=== PATIENT | female | born 1990 | race Caucasian/White ===

== ENCOUNTER 2017-07-04 04:50 | Emergency (ER) | payer MEDICAID ==
[2017-07-04] MEDS ORDERED: Dexamethasone 4 mg/ml Vial ONE (06:16)
== END 2017-07-04 06:23 | disposition home or self-care (01) ==
LOC: ERS 04:50
DX: L25.9 Unspecified contact dermatitis, unspecified cause (principal); F17.210 Nicotine dependence, cigarettes, uncomplicated
CPT/HCPCS: 99282; J1100

== ENCOUNTER → 2018-05-28 | Day surgery (SDC) | payer MEDICAID, OTHER, SELFPAY ==
[2018-05-28 22:39] LABS: #Eosinphils 0.4 thou/uL (0.0-0.7); #Monocytes 0.6 thou/uL (0.11-0.59); #Neutrophils 6.4 thou/uL (1.40-6.50); %Basophils 0.4 % (0.0-1.0); %Eosinophils 3.6 % (0.0-10.0); %Lymphocytes 28.8 % (21.0-51.0); %Neutrophils 61.2 % (42.0-75.0); Hemoglobin 11.5 g/dL (12.0-16.0); Mean Corpuscular HGB CONC 33.9 g/dL (32.0-36.0); Mean Corpuscular Hemoglobin 30.8 pg (27.0-31.0); Mean Platelet Volume 8.6 fL (7.4-10.4); Platelet Count 181 thou/uL (130-400); RBC Distribution Width 10.7 % (11.5-14.5); Red Blood Cell (RBC) Count 3.72 mill/uL (4.20-5.40); White Blood Cell (WBC) Count 10.4 thou/uL (4.8-10.8)
[2018-05-28 22:56] LABS: Amnisure Test No Membranes Rupture (No Rupture)
--- NOTE | 2018-05-28 22:56 | PDOC.EVN ---
Event Note - Event Note Event Note: H&P Dictated at 2230 In Brief: 16 weeks 6 days with concern for leakage FHTs by doppler 140s-150s SSE performed with no evidence LOF; possible BV Collected: VP3 GC and CHL Amnisure Details given to patient
[2018-05-28 22:57] LABS: Amnisure Internal Control QC ACCEPTABLE (ACCEPTABLE)
[2018-05-28 23:02] VITALS: BMI 29.7
--- NOTE | 2018-05-28 23:18 | HP ---
TIME OF EVALUATION: 10:30 pm. LOCATION: Triage bed B. CHIEF COMPLAINT: Possible leakage of fluid at 16 weeks and 6 days. The patient of Dr. Holcomb. HISTORY OF PRESENT ILLNESS: In brief, this is a 28-year-old , 6, para 4, ectopic 1, who is currently at 16 weeks and 6 days with a history of prior at around 30 to 33 weeks, who presents with possible vaginal discharge concerning for leakage. She denies a big gush of fluid or acute vaginal bleeding. She denies recent trauma. She denies any fevers or other passage of vaginal clots. PAST OBSTETRICAL HISTORY: Significant for first delivery being at term. Her second delivery being at 33 weeks and her most recent delivery being at 30 weeks. She also has a history of ectopic , for which she underwent left salpingectomy. PAST MEDICAL HISTORY: Otherwise negative. PAST SURGICAL HISTORY: Significant for the left salpingectomy and a LEEP. ALLERGIES: NONE. SOCIAL HISTORY: Negative for alcohol, tobacco, or drug use. REVIEW OF SYSTEMS: Complete review of systems was checked and is otherwise negative unless specified in the HPI. PHYSICAL EXAMINATION: She is afebrile and normotensive. Clinically, she is in no acute distress. Abdomen is soft and nontender. I performed a sterile speculum examination due to the possible complaint of leakage and sterile spec exam revealed no evidence of pooling, and no leakage of fluid with Valsalva or cough. The cervix was visibly closed. There was a slight amount of white discharge in the vagina, which could be concerning for bacterial vaginosis. I have collected AmniSure, VPIII, and a GC and a Chlamydia, although that last test will likely not be back today. On doppler assessment, heart tones were in the 140s to 150s on hand-held Doppler evaluation. ASSESSMENT: This is a multigravida, who is currently 16 weeks and 6 days with vaginal discharge, but no evidence of leakage of fluid on clinical examination. Sterile speculum examination is negative. PLAN: 1. I have collected AmniSure as AmniSure is not depended on gestational age. 2. Gonorrhea and Chlamydia cultures were sent (PCR), although these will likely not be back tonight. I did explain that to her and she will follow up with the results with her usual provider. 3. I have collected a VPIII and we will await those results to confirm/assess whether this is bacterial vaginosis or not. 4. Details given to the patient and she has a routine followup schedule. 5. The patient is scheduled to begin (17-hydroxyprogesterone) this Saturday for history of . That will occur with Dr. Holcomb in the office. Job ID: [id number]
--- NOTE | 2018-05-29 00:12 | PDOC.EVN ---
Event Note - Event Note Event Note: negative VP3 will not be back tonight per lab..ok to DC home and she will follow up results with MD in office
[2018-05-30 01:25] LABS: Chlamydia by PCR Not Detected (NotDetected); GC by PCR Not Detected (NotDetected)
== END ==
LOC: EDSTATUS 11:22 → ERS 21:18 → L&D/OP 22:02
DX: O99.89 Other specified diseases and conditions complicating pregnancy, childbirth and the puerperium (principal); N89.8 Other specified noninflammatory disorders of vagina; O99.332 Smoking (tobacco) complicating pregnancy, second trimester; F17.210 Nicotine dependence, cigarettes, uncomplicated; Z3A.16 16 weeks gestation of pregnancy; Z79.899 Other long term (current) drug therapy
CPT/HCPCS: 36415; 84112; 84702; 85025; 87480; 87491; 87510; 87591; 87660; 99284

== ENCOUNTER 2018-09-24 18:15 | Day surgery (SDC) | payer OTHER ==
--- NOTE | 2018-09-24 18:39 | PDOC.LDHP ---
Labor and Delivery H&P Chief complaint: loss of fluid HPI: 28 y/o at 33w6d, patient of Dr. Holcomb, presents with ?LOF since 5pm. No recent intercourse, no ctx, vb or decreased FM. ROS neg for HEENT, cv, pulm, gi, gu, neuro, psych, skin, musculoskeletal or constitutional symptoms other than mentioned above. OB History Details: SVDs at: 39w 36w 36w 34w after PPROM Current medications: pre-nomra vitamins, other ([place] - last dose last week) Previous surgical history: none Allergies/Adverse Reactions: Allergies Allergy/AdvReac Type Severity Reaction Status Date / Time No Known Allergies Allergy Verified 09/24/18 18:51 Social history: none - Physical Exam Vital signs reviewed and normal: yes General: NAD, resting Lungs: nonlabored breathing Abdomen: gravid Extremeties: no edema FHT: category 1 (125, mod variability, + accels, no decels) [employer] contractions every: None - Vaginal Exam cm dilated: 0 Effacement: 0% Station: -3 - Assessment 28 y/o at 33w6d with no e/o PTL. Amnisure negative, no pooling, neg valsalva. status reassuring with reactive NST. - Plan -: D/c home with precautions. Advised to keep all appointments. Will call with VP3 results if treatment is indicated. Uses [facility] on [address].
[2018-09-24 18:50] VITALS: BMI 33.4
[2018-09-24 19:34] LABS: Amnisure Test No Membranes Rupture (No Rupture)
[2018-09-24 19:35] LABS: Amnisure Internal Control QC ACCEPTABLE (ACCEPTABLE)
== END 2018-09-24 20:00 | disposition home or self-care (01) ==
LOC: L&D/OP 18:15
PROVIDERS: ATTEND Obstetrics & Gynecology
DX: O99.89 Other specified diseases and conditions complicating pregnancy, childbirth and the puerperium (principal); N89.8 Other specified noninflammatory disorders of vagina; Z3A.33 33 weeks gestation of pregnancy
CPT/HCPCS: 84112; 87480; 87510; 87660; 99285

== ENCOUNTER 2018-10-31 12:30 | Inpatient (IN) | payer OTHER ==
[~2018-10-31 12:30] MED LIST: Bupivacaine HCl 0.25%/Epi 0.0005/PF 10 ML VIAL FS ONE
[2018-10-31 13:08] VITALS: BMI 34.5
[2018-10-31] MEDS ORDERED: Ibuprofen 800 MG TAB PO PRN (13:19)
[2018-10-31] MEDS ORDERED: Butorphanol Tartrate 1 MG/ML VIAL SLOW IVP PRN (13:19)
[2018-10-31] MEDS ORDERED: Misoprostol 200 MCG TAB PR PRN (13:19)
[2018-10-31] MEDS ORDERED: Lidocaine 1% (PF) 30 ML VIAL SC PRN (13:19)
[2018-10-31] MEDS ORDERED: hydrALAZINE 20 MG/ML VIAL SLOW IVP PRN ×2 (13:19→21:05)
[2018-10-31] MEDS ORDERED: Acetaminophen 500 MG TAB PO PRN (13:19)
[2018-10-31] MEDS ORDERED: NS / Oxytocin 40 units/1000ml 1,000 ML IV PRN (13:19)
[2018-10-31] MEDS ORDERED: Ondansetron PF 4 MG/2 ML Vial IVP PRN ×3 (13:19→21:05)
[2018-10-31] MEDS ORDERED: HYDROcodone/Acetaminophen 5/325 mg Tablet PO PRN ×2 (13:19→21:05)
[2018-10-31] MEDS ORDERED: Promethazine HCl 25 MG/ML VIAL IM PRN ×2 (13:19→18:45)
--- NOTE | 2018-10-31 13:24 | PDOC.LDHP ---
Labor and Delivery H&P Chief complaint: loss of fluid HPI: 28 y/o WF A1 at 39 1/7 weeks presents with SROM. No contractions or vaginal bleeding. care uncomplicated thus far..Fetus is active. Current gestational age (weeks): 39 Due date: 11/06/18 Dating criteria: second trimester ultrasound Grav: 6 Para: 4 Current medications: pre- vitamins Allergies/Adverse Reactions: Allergies Allergy/AdvReac Type Severity Reaction Status Date / Time No Known Allergies Allergy Verified 10/31/18 13:08 Social history: none - Physical Exam Vital signs reviewed and normal: yes General: resting Heart: RRR Lungs: CTAB Abdomen: NTTP Extremeties: no edema FHT: category 1 [place] contractions every: irregular - Vaginal Exam cm dilated: 3 Effacement: 75% Station: -1 - OB Labs Blood type: A RH: positive Antibody Screen: negative HIV: negative RPR: negative HEPSAg: negative 1 hour GCT: negative GBS: negative - Assessment L&D Assessment: term rupture in membranes - Plan Plan: admit to L&D, labor augmentation if indicated, anesthesia consult for pain management
[2018-10-31] MEDS ORDERED: NS w/ Oxytocin 10 units 500 ML IV SCH (13:30)
[2018-10-31] MEDS: Lactated Ringer's 1,000 ML IV SCH ×2 (14:15→16:56)
[2018-10-31 14:44] LABS: Mean Corpuscular HGB CONC 33.7 g/dL (32.0-36.0); Mean Corpuscular Hemoglobin 30.3 pg (27.0-31.0); Mean Platelet Volume 8.3 fL (7.4-10.4); Platelet Count 214 thou/uL (130-400); Red Blood Cell (RBC) Count 3.97 mill/uL (4.20-5.40)
[2018-10-31 15:04] LABS: Syphilis Antibody Nonreactive (Nonreactive); Syphilis Antibody Index 0.02 S/CO (<1.00 Non-Reactive)
[2018-10-31 15:05] LABS: HBSAg Index 0.25 S/CO (0-0.99); Hep B Surf Ag Non-Reactive S/CO (NonReactive)
[2018-10-31] MEDS ORDERED: Fentanyl 100 MCG/2 ML VIAL ONE (15:24)
[2018-10-31] MEDS ORDERED: Fentanyl 4 mcg/Bup 0.1% Cadd 100 ML ONE (15:24)
--- NOTE | 2018-10-31 18:27 | PDOC.OPDEL ---
OB Operative/Delivery Note Delivery Dr/Surgeon: Alex Assist: n/a Pre-Delivery Diagnosis: active labor, ruptured membrane Procedure/Post Delivery Dx: spontaneous vaginal delivery Weeks gestation: 39 Anesthesia: epidural - Findings A Sex: female - 1 min: 9 - 5 min: 9 - Additional Findings/Plan Placenta delivered: spontaneous Repaired Obstetrical Laceration: none Estimated blood loss: 100cc Compilations/Other Findings: NC x2 reduced at perineum Post delivery plan: routine recovery
[2018-10-31] MEDS ORDERED: diphenhydrAMINE 50 MG/ML VIAL IVP PRN (18:45)
[2018-10-31] MEDS ORDERED: Fentanyl 4 mcg/Bupivacaine 0.1% Cassette 100 ML EPIDURAL SCH (18:45)
[2018-10-31] MEDS ORDERED: Acetaminophen 325 MG TAB PO PRN (18:45)
[2018-10-31] MEDS ORDERED: ePHEDrine/0.9% NaCl/PF SYRINGE 50 mg/10 ml SLOW IVP PRN (18:45)
[2018-10-31] MEDS ORDERED: Lactated Ringer's 500 ML IV PRN (18:45)
[2018-10-31] MEDS ORDERED: Naloxone HCl 0.4 mg/ml Vial IVP PRN ×2 (18:45)
[2018-10-31] MEDS ORDERED: Communication Order-Pharmacy FS SCH (18:45)
[2018-10-31] MEDS ORDERED: Lanolin Ointment 7 GM TUBE TOP PRN (21:05)
[2018-10-31] MEDS ORDERED: Bisacodyl 10 MG SUPP PR PRN (21:05)
[2018-10-31] MEDS ORDERED: Benzocaine-Menthol 82.5 ML CAN TOP PRN (21:05)
[2018-10-31] MEDS ORDERED: Preparation H Ointment 28 GM TUBE PR PRN (21:05)
[2018-10-31] MEDS ORDERED: diphenhydrAMINE 25 MG CAP PO PRN (21:05)
[2018-10-31] MEDS ORDERED: Milk Of Magnesia 30 ML UDCUP PO PRN (21:05)
[2018-10-31] MEDS ORDERED: NS / Oxytocin 40 units/1000ml 1,000 ML IV SCH (21:05)
[2018-10-31] MEDS: Docusate Calcium (SURFAK) 240 MG CAP PO SCH (23:13)
[2018-10-31] MEDS: Ibuprofen 800 MG TAB PO SCH (23:13)
[2018-11-01] MEDS: HYDROcodone/Acetaminophen 5/325 mg Tablet PO PRN ×4 (00:16→21:32)
[2018-11-01] MEDS: Ibuprofen 800 MG TAB PO SCH ×3 (06:20→21:30)
--- NOTE | 2018-11-01 07:49 | PDOC.PP ---
Post Progress Note Post Day #: 1 PO intake tolerated: yes Flatus: yes Ambulation: yes Vital Signs (12 hours) Temp Pulse Resp BP Pulse Ox 11/01/18 04:43 97.8 F 79 18 118/56 L 10/31/18 23:20 98.3 F 85 18 124/67 10/31/18 22:30 98.4 F 80 18 112/63 98 Weight Weight 183 lb - Physical Examination General: NAD Respiratory: non-labored breathing Abdominal: no distention, appropriately TTP Fundus firm & at: umb Neurological: no gross focal deficits Psychiatric: normal affect Result Diagrams: 10/31/18 13:31 Additional Labs: Post Labs Blood Type A POSITIVE 10/31/18 13:31 Hep Bs Antigen Non-Reactive S/CO (NonReactive) 10/31/18 13:31 - Assessment/Plan PPD1 s/p TSVD VSSAF Doing well no pain lochia appropriate Rh pos RImm Cont PP care, home tomorrow
[2018-11-01] MEDS: Prenatal Vitamin 1 TAB PO SCH (08:01)
[2018-11-01] MEDS: Docusate Calcium (SURFAK) 240 MG CAP PO SCH ×2 (08:01→21:30)
[2018-11-01] MEDS: Ferrous Sulfate 325 MG TAB PO SCH ×2 (08:38→17:20)
[2018-11-01] MEDS ORDERED: Adacel (T-DAP) 0.5 ML SYRINGE IM ONE (09:00)
[2018-11-02] MEDS: Ibuprofen 800 MG TAB PO SCH ×2 (05:19→14:10)
[2018-11-02] MEDS: HYDROcodone/Acetaminophen 5/325 mg Tablet PO PRN ×2 (06:09→15:00)
[2018-11-02] MEDS: Docusate Calcium (SURFAK) 240 MG CAP PO SCH (08:44)
[2018-11-02] MEDS: Ferrous Sulfate 325 MG TAB PO SCH (08:44)
[2018-11-02] MEDS: Prenatal Vitamin 1 TAB PO SCH (08:44)
[2018-11-02 09:14] VITALS: BP 122/70; TEMP 97.7
== END 2018-11-02 17:00 | disposition home or self-care (01) | DRG 807 ==
LOC: L&D/OP 12:30 → L&D 16:49 → 3SW 22:44
PROVIDERS: ADMIT Obstetrics & Gynecology; ATTEND Obstetrics & Gynecology
PROC: 10E0XZZ Delivery of Products of Conception, External Approach (ICD-10-PCS; principal; 2018-10-31)
DX: O69.1XX0 Labor and delivery complicated by cord around neck, with compression, not applicable or unspecified (principal); Z37.0 Single live birth; Z3A.39 39 weeks gestation of pregnancy
CPT/HCPCS: 36415; 51702; 85027; 86780; 86850; 86900; 86901; 87340; J2001; J2405; J2590; J3010

== ENCOUNTER 2018-12-20 21:27 | Emergency (ER) | payer OTHER ==
[2018-12-20] MEDS ORDERED: HYDROcodone/Acetaminophen 5/325 mg Tablet ONE (22:18)
== END 2018-12-20 22:24 | disposition home or self-care (01) ==
LOC: ERS 21:27
DX: K08.89 Other specified disorders of teeth and supporting structures (principal); F17.210 Nicotine dependence, cigarettes, uncomplicated
CPT/HCPCS: 99282

== ENCOUNTER 2023-01-19 23:43 | Emergency (ER) | payer OTHER ==
[2023-01-20] MEDS ORDERED: predniSONE 20 MG TAB ONE (00:12)
[2023-01-20] MEDS ORDERED: diphenhydrAMINE 50 MG/ML VIAL ONE (00:12)
[2023-01-20] MEDS ORDERED: Acetaminophen 500 MG TAB ONE (01:16)
[2023-01-20 04:09] LABS: SARS-CoV-2 NAA Rapid Test DETECTED (NotDetected)
== END 2023-01-20 04:51 ==
LOC: ERS 23:43
DX: U07.1 COVID-19 (principal); F17.210 Nicotine dependence, cigarettes, uncomplicated
CPT/HCPCS: 87081; 87430; 96361; 96374; J1200; J7512; U0002